=== PATIENT | male | born 1970 | race Caucasian/White ===

== ENCOUNTER 2016-08-02 14:16 | Inpatient (IN) | payer BC ==
[~2016-08-02] VITALS: Ht 177.8 cm; Wt 79.9 kg
[2016-08-02 14:18] VITALS: BP 133/79; PULSE 92; RESP 16; TEMP 98; O2SAT 97
[2016-08-02 15:03] VITALS: BP 143/80; PULSE 104; RESP 18; TEMP 98.4; O2SAT 97
--- NOTE | 2016-08-02 15:59 | PD ---
HPI Chief Complaint: Psychiatric Symptoms Time Seen by Provider: 15:56 Travel History International Travel<30 days: No Contact w/Intl Traveler<30days: No Traveled to known affect area: No History of Present Illness HPI 46-year-old male presents the emergency Department voluntarily for suicidal ideation. Patient is currently in the midst of divorce and reports wanting to drive in front of a semi-or some other means to kill himself. The police went to his workplace but he came in voluntarily. He denies alcohol or drug abuse. He denies any medical issues or problems today. He has no chronic medical issues and takes no medications. He has no known drug allergies. [facility] Social History Alcohol Use: No Tobacco Use: No Substance Use: No Allergies-Medications (Allergen,Severity, Reaction): Coded Allergies: No Known Allergies (Unverified , 08/02/16) Review of Systems Except as stated in HPI: all other systems reviewed are Neg General / Constitutional: No: Fever Eyes: No: Visual changes HENT: No: Headaches Cardiovascular: No: Chest Pain or Discomfort Respiratory: No: Shortness of Breath Gastrointestinal: No: Abdominal Pain Genitourinary: No: Dysuria Musculoskeletal: No: Pain Skin: No Rash Neurologic: No: Weakness Psychiatric: No: Depression Endocrine: No: Polydipsia Hematologic/Lymphatic: No: Easy Bruising Physical Exam Narrative GENERAL: Patient is alert and oriented 3. No acute distress. SKIN: Warm and dry. Normal color. Normal turgor. HEAD: Atraumatic. Normocephalic. EYES: Pupils equal and round. No scleral icterus. No injection or drainage. ENT: No nasal bleeding or discharge. Mucous membranes pink and moist. Pharynx is clear. Airway is patent. NECK: Trachea midline. Supple nontender. CARDIOVASCULAR: Regular rate and rhythm. RESPIRATORY: No accessory muscle use. Clear to auscultation. Breath sounds equal bilaterally. GASTROINTESTINAL: Abdomen soft, non-tender, nondistended. Hepatic and splenic margins not palpable. MUSCULOSKELETAL: Extremities without clubbing, cyanosis, or edema. No obvious deformities. NEUROLOGICAL: Awake and alert. No obvious cranial nerve deficits. Motor grossly within normal limits. Five out of 5 muscle strength in the arms and legs. Normal speech. PSYCHIATRIC: Appropriate mood and affect; insight and judgment normal. Data Data Last Documented VS Vital Signs Date Time Temp Pulse Resp B/P Pulse Ox O2 Delivery O2 Flow Rate FiO2 08/02/16 15:03 98.4 104 18 143/80 97 08/02/16 14:18 Room Air Orders Diet Regular Basic (08/02/16 Dinner) MDM Medical Decision Making Medical Screen Exam Complete: Yes Emergency Medical Condition: Yes Differential Diagnosis Social stressors. Depression. Suicidal ideation. Narrative Course Patient is medically stable at time of exam. Labs ordered for psychiatric protocol. Patient is medically cleared for psychiatric evaluation. Diagnosis Primary Impression: Suicidal ideation Additional Impression: Medical clearance for psychiatric admission Condition: Stable Hung Duff Aug 02, 2016 15:59
[2016-08-02] MEDS ORDERED: LEXA20TA PO (18:01)
[2016-08-02 18:38] LABS: AUTOMATED NEUTROPHIL # 5.9 TH/MM3 (1.8-7.7); BASOPHIL % 0.6 % (0.0-2.0); EOSINOPHIL # 0.1 TH/MM3 (0-0.4); EOSINOPHIL % 1.5 % (0.0-4.0); HEMATOCRIT 49.6 % (39.0-51.0); HEMO FLAGS DIFF FINAL; LYMPH % 17.3 % (9.0-44.0); LYMPHOCYTE # 1.4 TH/MM3 (1.0-4.8); MEAN CELL VOLUME 90.1 FL (80.0-100.0); MEAN CORPUSCULAR HEMOGLOBIN 29.6 PG (27.0-34.0); MEAN CORPUSCULAR HGB CONC 32.9 % (32.0-36.0); MONO % 7.3 % (0.0-8.0); NEUT % 73.3 % (16.0-70.0); PLATELET COUNT 279 TH/MM3 (150-450); WHITE BLOOD COUNT 8.1 TH/MM3 (4.0-11.0)
[2016-08-02 18:52] LABS: ANION GAP 9 MEQ/L (5-15)
[2016-08-02 18:55] LABS: ALKALINE PHOSPHATASE 50 U/L (45-117); ALT (GPT) 34 U/L (12-78); AST (GOT) 33 U/L (15-37); BICARBONATE 24.5 MEQ/L (21.0-32.0); BLOOD UREA NITROGEN 29 MG/DL (7-18); CHLORIDE 104 MEQ/L (98-107); GLOMERULAR FILTRATION RATE 75 ML/MIN (>89); POTASSIUM 3.7 MEQ/L (3.5-5.1); SODIUM (NA) 137 MEQ/L (136-145); TOTAL BILIRUBIN ADULT 0.3 MG/DL (0.2-1.0)
[2016-08-02 22:04] VITALS: BP 120/71; PULSE 63; RESP 17; O2SAT 99
[2016-08-03 02:25] VITALS: BP 117/71; PULSE 64; RESP 18; O2SAT 97
[2016-08-03 06:20] VITALS: BP 111/89; PULSE 77; RESP 18; O2SAT 99
[2016-08-03 07:09] LABS: AMPHETAMINE, URINE NEG (NEG); BARBITURATES, URINE NEG (NEG); COCAINE, URINE NEG (NEG)
[2016-08-03] MEDS ORDERED: ALUMINUM/MAGNESIUM/SIMETH 30 ML CUP PO PRN (08:00)
[2016-08-03] MEDS ORDERED: MAGNESIUM HYDROXIDE SUSP 30 ML CUP PO PRN (08:00)
[2016-08-03] MEDS ORDERED: ACETAMINOPHEN 325 MG TAB PO PRN (08:00)
[2016-08-03] MEDS ORDERED: LORazepam 2 MG/ML VIAL IM PRN (08:00)
[2016-08-03] MEDS ORDERED: diphenhydrAMINE HCL 50 MG CAP PO PRN (08:00)
[2016-08-03] MEDS ORDERED: BENZTROPINE MESYLATE 2 MG/2 ML VIAL IM PRN (08:00)
[2016-08-03] MEDS ORDERED: BENZTROPINE MESYLATE 1 MG TAB PO PRN (08:00)
--- NOTE | 2016-08-03 08:49 | MH ---
cc: WYATT GOINS DATE OF ADMISSION: 08/03/2016 ADMITTING DIAGNOSIS 1. Major depressive disorder, single episode, severe without psychotic features, F32.2. LEGAL STATUS The patient is presently capacitated to sign into the hospital voluntarily and consent for medications. Voluntary status. HISTORY OF PRESENT ILLNESS Mr. Booth is a 46-year-old male with no psychiatric history who presented on a voluntary basis to the emergency room with complaints of suicidal ideation. Reviewing the electronic medical record, I see no prior psychiatric contact within our system. Patient seen and examined. Chart reviewed. Case discussed with the nurse in the J-pod. On my examination today, the patient presents as intensely dysphoric. He says that about 4 months ago he began going on to "[employer]" to talk with other women over the internet. His found out and has begun the process of leaving him. The patient thinks this is unfair because he believes that he has an internet addiction and that he should not be penalized in this way for something that is out of his control. Nonetheless, his reportedly persists in leaving him and this is making him quite depressed. He says "I fucked up. I need help. I don't want to live without my ." The patient endorses worsening depressive symptoms over the last 4 months, acutely worse about 2 months ago. There is no anhedonia but the patient does report sleep difficulty and weight loss in the setting of normal appetite. He feels hopeless about the future. He feels guilty for his behavior. There has been no decrement in his ADLs and he continues to go to work and the gym as normal. He does endorse suicidal ideation. His plan had initially been to shoot himself but his confiscated his gun. He now says that he wants to run his motorcycle into a semi truck. He reiterates "I'm not going to live without my ." I can elicit no current or prior hypomanic/manic symptoms. He denies ever having experienced audiovisual hallucinations and I can elicit no delusional beliefs. PAST MEDICAL HISTORY The patient denies any history of psychiatric diagnosis. He is not currently under the care of an outpatient psychiatrist. He is seeing an individual marital counselor recently. He denies any history of psychiatric admissions or suicide attempts. The patient reports that he has been taking his 's Lexapro 20 mg daily during the period of acute dysphoria, but he has not found this agent at all helpful for lifting his mood. FAMILY HISTORY The patient reports that two of his maternal uncles had some sort of mental illness, although he is unsure of the diagnosis. He denies any family history of suicide or substance use disorder. CHEMICAL DEPENDENCY HISTORY The patient denies any abuse of drugs or alcohol. SOCIAL HISTORY The patient denies any history of physical, verbal or sexual abuse but does note that his parents locked him in the closet as a child so that they could smoke cannabis. He has been 20 years and has a stepdaughter. He has a 9th grade education and subsequently obtained his GED. 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 He denies any or legal history. Denies any pentecostalism or spiritual beliefs. His has removed the gun from the home per his report. PAST MEDICAL HISTORY The patient reports no history of medical illness. REVIEW OF SYSTEMS No reported headache, vision or hearing changes, chest pain, shortness of breath, bowel or bladder issues. ALLERGIES No known allergies. PHYSICAL EXAMINATION Vital signs: Temperature 98.4, pulse 77, respirations 18, blood pressure 111/89, pulse oximetry 99% on room air. The physical examination was completed in the emergency room by the ER staff and the patient was medically cleared. On my examination today, the patient appears to be in no acute physical distress. He is well-nourished and well-developed. No motor abnormalities noted. LABORATORY Laboratory is reviewed: CBC is unremarkable. CMP reveals mildly decreased GFR at 75. Urine toxicology is negative and alcohol level was undetectable. MENTAL STATUS EXAMINATION The patient is in a hospital gown. He is well-groomed and maintaining basic hygiene. He is awake and alert and oriented x3. No evidence of delirium. No motor abnormalities noted. Speech is within normal limits for rate, tone and volume. Memory is intact on clinical exam. Language and fund of knowledge seem average. Mood is severely depressed and affect is restricted and dysphoric and consistent with stated mood. Thought process linear. No loosening of associations. No evident delusions. Denies audiovisual hallucinations. Endorses ongoing suicidal ideation with plan to drive his motorcycle into a semi truck. No reported urge to hurt himself on the inpatient psychiatric unit. No homicidal ideation. Insight and judgment are fair. ASSESSMENT AND PLAN This is a 46-year-old male with psychiatric history as detailed above who presents on a voluntary basis with suicidal ideation. Although initially triggered by his marital difficulties, it is my suspicion that the patient's current dysphoria has blossomed into a major depressive episode, currently severe without psychotic features. The patient endorses active suicidal ideation with plan. He has apparently been taking Lexapro without much benefit. He endorses prominent difficulties with sleep and also hopelessness and guilt. The patient requires psychiatric admission at this time for safety, observation and stabilization. Admit inpatient. Voluntary status. Check TFTs, BMP, hemoglobin A1c and lipid panel in the morning. Discontinue Lexapro. Given that he has seen no benefit from this SSRI and given that he has reported issues with sleep, I think a transition out of class to Remeron is reasonable. I will start Remeron 15 mg at bedtime for mood. Risks, benefits and alternatives discussed with the patient. Ativan as needed for anxiety, Cogentin as needed for EPS, Benadryl as needed for sleep. Vitals every shift. Counselor to see. Disposition planning. Estimated length of stay: 5-7 days. Wyatt COELLO /7:54 AM /8:27 AM BOBBY
[2016-08-03] MEDS: NICOTINE 21 MG/24 HR PATCH T-DERMAL SCH (09:00)
[2016-08-03] MEDS: REMOVE OLD PATCH T-DERMAL SCH (09:00)
[2016-08-03 10:25] VITALS: BP 126/65; PULSE 92; RESP 18; TEMP 98.2; O2SAT 98
[2016-08-03] MEDS: LORazepam 0.5 MG TAB PO PRN ×2 (12:00→20:34)
[2016-08-03 18:48] VITALS: BP 118/65; PULSE 90; RESP 18; TEMP 98.5; O2SAT 96
[2016-08-03 19:00] VITALS: BP 118/65; PULSE 90; RESP 18; TEMP 98.5; O2SAT 96
[2016-08-03] MEDS: MIRTAZAPINE 15 MG TAB PO SCH (20:34)
[2016-08-04 05:35] VITALS: BP 103/61; PULSE 68; RESP 17; TEMP 97.9; O2SAT 98
[2016-08-04] MEDS: REMOVE OLD PATCH T-DERMAL SCH (09:00)
[2016-08-04] MEDS: NICOTINE 21 MG/24 HR PATCH T-DERMAL SCH (09:00)
[2016-08-04 12:59] LABS: ANION GAP 7 MEQ/L (5-15); BICARBONATE 29.3 MEQ/L (21.0-32.0); BLOOD UREA NITROGEN 16 MG/DL (7-18); CHLORIDE 103 MEQ/L (98-107); FREE T4 1.02 NG/DL (0.76-1.46); GLOMERULAR FILTRATION RATE 72 ML/MIN (>89); HDL CHOLESTEROL 33.7 MG/DL (40.0-60.0); LDL CHOLESTEROL 178 MG/DL (0-99); POTASSIUM 4.5 MEQ/L (3.5-5.1); SODIUM (NA) 139 MEQ/L (136-145)
--- NOTE | 2016-08-04 17:03 | HHI.PYPN ---
Subjective Remarks Pt signed ROR stating that he changed his mind and is ready to go. "I've realized my is just a CT! So I don't want her anymore." Staff report he is seclusive to his room. He denies SI today but is agreeable to remain voluntary admission. No medication side effects. Objective Alert: Yes [place]: Person, Place, Date, Situation Mood: Depressed Affect: Other (angry) Memory Intact: Immediate, Recent, Remote Hallucinations: Other (none) Delusions: No Delusion Type: Other (none) Suicidal: Ideation (denies) Homicidal: Ideation (denies) Insight/Judgment poor Labs Test 08/04/16 11:42 Sodium Level 139 MEQ/L Potassium Level 4.5 MEQ/L Chloride Level 103 MEQ/L Carbon Dioxide Level 29.3 MEQ/L Anion Gap 7 MEQ/L Blood Urea Nitrogen 16 MG/DL Creatinine 1.10 MG/DL Estimat Glomerular Filtration 72 ML/MIN Rate Random Glucose 95 MG/DL Calcium Level 8.9 MG/DL Triglycerides Level 79 MG/DL Cholesterol Level 227 MG/DL LDL Cholesterol 178 MG/DL HDL Cholesterol 33.7 MG/DL Cholesterol/HDL Ratio 6.73 RATIO Free Thyroxine 1.02 NG/DL Thyroid Stimulating Hormone 0.673 uIU/ML 3rd Gen Vitals/IOs Vital Signs Date Time Temp Pulse Resp B/P Pulse Ox O2 Delivery O2 Flow Rate FiO2 08/04/16 05:35 97.9 68 17 103/61 98 08/03/16 06:20 Room Air Assessment & Plan Problem List: (1) Major depressive disorder, single episode, severe without psychotic features ICD Code: F32.2 Assessment & Plan Continue current tx plan. Estimated LOS: days Justification for Cont. Inpt. Continue to monitor for safety. Meghana Bowles MD Aug 04, 2016 17:03
[2016-08-04] MEDS: MIRTAZAPINE 15 MG TAB PO SCH (20:33)
[2016-08-05 06:30] VITALS: BP 107/65; PULSE 74; RESP 16; TEMP 98.1; O2SAT 97
[2016-08-05 06:32] VITALS: BP 97/60; PULSE 100; RESP 16; TEMP 98.7; O2SAT 98
[2016-08-05] MEDS: REMOVE OLD PATCH T-DERMAL SCH (08:37)
[2016-08-05] MEDS: NICOTINE 21 MG/24 HR PATCH T-DERMAL SCH (08:37)
[2016-08-05 11:15] LABS: HEMOGLOBIN A1a 1.1 %; HEMOGLOBIN A1b 0.8 %; HEMOGLOBIN Ao 85.6 %; HEMOGLOBIN F 0.8 %; HEMOGLOBIN P3 3.9 %
--- NOTE | 2016-08-05 14:40 | HHI.PYPN ---
Subjective Remarks Pt seen and discussed with staff. He reports that his mood is much better and he is accepting of demise of relationship. He reports that he had a good visit with his parents yesterday. He reports that he was seeing a therapist with his for marital counseling but would like to see a therapist individually upon discharge. He denies SI/HI today. No medication side effects. Sleep is good. Objective Alert: Yes [place]: Person, Place, Date, Situation Mood: Depressed Affect: Restricted Memory Intact: Immediate, Recent, Remote Hallucinations: Other (none) Delusions: No Delusion Type: Other (none) Suicidal: Ideation (denies) Homicidal: Ideation (denies) Insight/Judgment fair Vitals/IOs Vital Signs Date Time Temp Pulse Resp B/P Pulse Ox O2 Delivery O2 Flow Rate FiO2 08/05/16 06:32 98.7 100 16 97/60 98 08/03/16 06:20 Room Air Intake and Output 08/04/16 08/04/16 08/05/16 08:00 16:00 00:00 Intake Total 360 ml 240 ml Balance 360 ml 240 ml Assessment & Plan Problem List: (1) Major depressive disorder, single episode, severe without psychotic features ICD Code: F32.2 Assessment & Plan continue current tx plan. Estimated LOS: days Justification for Cont. Inpt. monitoring for safety. Meghana Bowles MD Aug 05, 2016 14:40
[2016-08-05 18:00] VITALS: BP 120/73; PULSE 80; RESP 17; TEMP 99.6; O2SAT 99
[2016-08-05] MEDS: MIRTAZAPINE 15 MG TAB PO SCH (21:28)
[2016-08-06 06:01] VITALS: BP 91/58; PULSE 69; RESP 16; TEMP 97.2; O2SAT 96
[2016-08-06] MEDS: NICOTINE 21 MG/24 HR PATCH T-DERMAL SCH (09:00)
[2016-08-06] MEDS: REMOVE OLD PATCH T-DERMAL SCH (09:00)
--- NOTE | 2016-08-06 14:46 | HHI.DS ---
Psychiatry Discharge Summary Inpatient Psychiatric care?: Yes Advance Directive: No Reason Not Provided: Due to Patient Condition Mental Health AdvanceDirective: No Health Care Proxy: No Admission Admission Date Aug 03, 2016 at 07:51 Admission Diagnosis: (1) Major depressive disorder, single episode, severe without psychotic features ICD Code: F32.2 Brief History See history of present illness for a brief history of this patient's admission. Tobacco Use In Past 30 Days: No Tobacco Past 30 Days Alcohol Use: Monthly or Less Hospital Course Did well during the hospital course. Participated in individual and group therapies. No psychosis by the end of the hospital stay. Tolerated medicines well. No procedures performed. Results Blood Pressure 91 / 58 Vital Signs Date Time Temp Pulse Resp B/P Pulse Ox O2 Delivery O2 Flow Rate FiO2 08/06/16 06:01 97.2 69 16 91/58 96 08/03/16 06:20 Room Air Laboratory Tests Test 08/04/16 11:42 Estimat Glomerular Filtration 72 ML/MIN (>89) Rate Cholesterol Level 227 MG/DL (120-200) LDL Cholesterol 178 MG/DL (0-99) HDL Cholesterol 33.7 MG/DL (40.0-60.0) Laboratory Results Test 08/04/16 11:42 Hemoglobin A1c 5.4 % (4.3-6.0) Triglycerides Level 79 MG/DL (42-150) Cholesterol Level 227 MG/DL (120-200) LDL Cholesterol 178 MG/DL (0-99) HDL Cholesterol 33.7 MG/DL (40.0-60.0) Summary of Procedures None Pending results at discharge: No Medications # of Antipsychotic meds at D/C: 1 Appropriate >1 Antipsych meds?: 1 Approp Antipsych med options 1 - Minimum of three failed multiple trials of monotherapy. 2 - Documented plan to taper to monotherapy due to previous use of multiple meds OR cross-taper in progress at D/C. 3 - Documentation of augmentation of Clozapine. 4 - Justification other than those listed in allowable values 1-3, document here : Discharge Discharge Date: August 06, 2016 Discharge Diagnosis: (1) Major depressive disorder, single episode, severe without psychotic features Diagnosis: Principal ICD Code: F32.2 Mental Status Exam at Disch At time of discharge the patient was not suicidal or homicidal and cognition was intact. He verbally contracted for safety. No psychosis. Pt Condition on Discharge: Stable Discharge Disposition: Discharge Home Discharge Instructions Diet Instructions: As Tolerated, No Restrictions Activities you can perform: Regular-No Restrictions Scheduled Appointment: Ming Louis Yanni Appointment Date: August 13, 2016 Appointment Time: 7:30am Discharge Time <= 30 minutes Discharge/Advance Care Plan Health Problems: (1) Major depressive disorder, single episode, severe without psychotic features Goals to promote your health * To prevent worsening of your condition and complications * To maintain your health at the optimal level Directions to meet your goals Take your medications as prescribed Follow your dietary instruction Follow activity as directed Keep your appointments as scheduled Take your immunizations and boosters as scheduled If your symptoms worsen call your PCP, if no PCP go to Urgent Care Center or Emergency Room For 29/10 questions related to your inpatient stay or results of tests pending at discharge, please contact Dr. Chaka Gu at Smoking is Dangerous to Your Health. Avoid second hand smoking Chaka Gu MD August 06, 2016 14:46
== END 2016-08-06 18:10 | disposition home or self-care (01) | DRG 885 ==
LOC: NEPJ 14:16 → NEDA 08-03 07:51 → H260 08-03 09:00
PROVIDERS: ADMIT Psychiatry & Neurology Psychiatry; ATTEND Psychiatry & Neurology Psychiatry
DX: F32.2 Major depressive disorder, single episode, severe without psychotic features (principal); R45.851 Suicidal ideations
CPT/HCPCS: 80048; 80053; 80061; 80307; 83036; 84439; 84443; 85025; 99284

== ENCOUNTER 2017-03-03 20:39 | Emergency (ER) | payer BC, OTHER ==
[~2017-03-03] VITALS: Ht 182.9 cm; Wt 82.0 kg
[2017-03-03 20:50] VITALS: BP 141/91; PULSE 113; RESP 20; TEMP 98.6; O2SAT 96
[2017-03-03] MEDS ORDERED: SODIUM CHLOR 0.9% 1000 ML INJ 1,000 ML IV ONE (21:00)
[2017-03-03 21:51] LABS: AUTOMATED NEUTROPHIL # 4.4 TH/MM3 (1.8-7.7); BASOPHIL % 0.6 % (0.0-2.0); EOSINOPHIL # 0.1 TH/MM3 (0-0.4); EOSINOPHIL % 0.9 % (0.0-4.0); HEMATOCRIT 48.6 % (39.0-51.0); HEMO FLAGS DIFF FINAL; MEAN CELL VOLUME 91.1 FL (80.0-100.0); MEAN CORPUSCULAR HEMOGLOBIN 31.3 PG (27.0-34.0); MEAN CORPUSCULAR HGB CONC 34.4 % (32.0-36.0); MONO % 5.5 % (0.0-8.0); PLATELET COUNT 228 TH/MM3 (150-450); RED BLOOD COUNT 5.33 MIL/MM3 (4.50-5.90); RED CELL DISTRIBUTION WIDTH 13.1 % (11.6-17.2); WHITE BLOOD COUNT 6.8 TH/MM3 (4.0-11.0)
[2017-03-03 22:02] LABS: ANION GAP 8 MEQ/L (5-15); BICARBONATE 26.7 MEQ/L (21.0-32.0); BLOOD UREA NITROGEN 12 MG/DL (7-18); CHLORIDE 107 MEQ/L (98-107); GLOMERULAR FILTRATION RATE 76 ML/MIN (>89); POTASSIUM 3.5 MEQ/L (3.5-5.1); SODIUM (NA) 142 MEQ/L (136-145)
[2017-03-03 22:05] LABS: ACETAMINOPHEN LESS THAN 2.0 MCG/ML (10.0-30.0); ALCOHOL 127 MG/DL (0-5)
--- NOTE | 2017-03-03 22:18 | PD ---
HPI Chief Complaint: Psychiatric Symptoms Time Seen by Provider: 20:58 Travel History International Travel<30 days: No Contact w/Intl Traveler<30days: No Traveled to known affect area: No History of Present Illness HPI Patient is a 47 year old male brought in by police under a [place] Act. Per police, he was texting his ex- and telling her he was going to kill himself. Police say he repeated this statement when they arrived. He has firearms at home and told police he would use them to kill himself. Currently, he denies this. He denies any complaints at this time. He does have history of depression and takes Lexapro. He has been hospitalized once before here for suicidal ideation. [facility] Past Medical History Depression: Yes Cancer: No Cardiovascular Problems: No Diabetes: No Endocrine: No Genitourinary: No Headaches: Yes Immune Disorder: No Musculoskeletal: No Neurologic: No Psychiatric: Yes (ongoing depression for about four months) Reproductive: No Respiratory: No Seizures: No Tetanus Vaccination: Unknown Influenza Vaccination: No Past Surgical History Surgical History: No Previous Surgery Other Surgery: No Social History Alcohol Use: Yes ("EVERY WEEKEND") Tobacco Use: No Substance Use: No Allergies-Medications (Allergen,Severity, Reaction): Coded Allergies: No Known Allergies (Unverified , 08/02/16) Reported Meds & Prescriptions Reported Meds & Active Scripts Active Reported Lexapro (Escitalopram Oxalate) 20 Mg Tab 20 Mg PO DAILY Review of Systems Except as stated in HPI: all other systems reviewed are Neg General / Constitutional: No: Fever, Chills HENT: No: Headaches, Lightheadedness Cardiovascular: No: Chest Pain or Discomfort Respiratory: No: Shortness of Breath Gastrointestinal: No: Nausea, Vomiting, Abdominal Pain Musculoskeletal: No: Myalgias, Weakness Skin: No Rash, No Change in Pigmentation Neurologic: No: Weakness, Dizziness Physical Exam Narrative GENERAL: Awake and alert, in no acute distress. AOB. SKIN: Focused skin assessment warm/dry. HEAD: Atraumatic. Normocephalic. EYES: Pupils equal and round. No scleral icterus. ENT: Mucous membranes pink and moist. NECK: Trachea midline. No JVD. CARDIOVASCULAR: Regular rate and rhythm. No murmur appreciated. RESPIRATORY: No accessory muscle use. Clear to auscultation. Breath sounds equal bilaterally. GASTROINTESTINAL: Abdomen soft, non-tender, nondistended. MUSCULOSKELETAL: No obvious deformities. No clubbing. No cyanosis. No edema. NEUROLOGICAL: Awake and alert. No obvious cranial nerve deficits. Motor grossly within normal limits. Normal speech. PSYCHIATRIC: Appropriate mood and affect; insight and judgment normal. Data Data Last Documented VS Vital Signs Date Time Temp Pulse Resp B/P (MAP) Pulse Ox O2 Delivery O2 Flow Rate FiO2 03/04/17 02:49 90 18 113/71 (85) 99 03/03/17 23:03 Room Air 03/03/17 20:50 98.6 Orders Orders Complete Blood Count With Diff (03/03/17 20:52) Basic Metabolic Panel (Bmp) (03/03/17 20:52) Psych Screen (03/03/17 20:52) Drug Screen, Random Urine (03/03/17 20:52) Alcohol (Ethanol) (03/03/17 20:52) Sodium Chlor 0.9% 1000 Ml Inj (Ns 1000 M (03/03/17 21:00) Salicylates (Aspirin) (03/03/17 20:58) Tylenol (Acetaminophen) (03/03/17 20:52) Electrocardiogram (03/03/17 20:54) Labs Laboratory Tests Test 03/03/17 21:15 03/03/17 21:45 White Blood Count 6.8 TH/MM3 Red Blood Count 5.33 MIL/MM3 Hemoglobin 16.7 GM/DL Hematocrit 48.6 % Mean Corpuscular Volume 91.1 FL Mean Corpuscular Hemoglobin 31.3 PG Mean Corpuscular Hemoglobin Concent 34.4 % Red Cell Distribution Width 13.1 % Platelet Count 228 TH/MM3 Mean Platelet Volume 7.4 FL Neutrophils (%) (Auto) 64.0 % Lymphocytes (%) (Auto) 29.0 % Monocytes (%) (Auto) 5.5 % Eosinophils (%) (Auto) 0.9 % Basophils (%) (Auto) 0.6 % Neutrophils # (Auto) 4.4 TH/MM3 Lymphocytes # (Auto) 2.0 TH/MM3 Monocytes # (Auto) 0.4 TH/MM3 Eosinophils # (Auto) 0.1 TH/MM3 Basophils # (Auto) 0.0 TH/MM3 CBC Comment DIFF FINAL Differential Comment Blood Urea Nitrogen 12 MG/DL Creatinine 1.05 MG/DL Random Glucose 108 MG/DL Calcium Level 8.5 MG/DL Sodium Level 142 MEQ/L Potassium Level 3.5 MEQ/L Chloride Level 107 MEQ/L Carbon Dioxide Level 26.7 MEQ/L Anion Gap 8 MEQ/L Estimat Glomerular Filtration Rate 76 ML/MIN Salicylates Level LESS THAN 1.7 MG/DL Acetaminophen Level LESS THAN 2.0 MCG/ML Ethyl Alcohol Level 127 MG/DL Urine Opiates Screen NEG Urine Barbiturates Screen NEG Urine Amphetamines Screen NEG Urine Benzodiazepines Screen NEG Urine Cocaine Screen NEG Urine Cannabinoids Screen NEG MDM Medical Decision Making Medical Screen Exam Complete: Yes Emergency Medical Condition: Yes Medical Record Reviewed: Yes Differential Diagnosis Intoxication versus psychosis versus suicidal thoughts Narrative Course Patient is a 47-year-old male who comes in under Sommer act after telling his ex- he wanted to kill himself. He has no medical complaints. He is tachycardic on exam. IV established, labs sent. Patient given IV fluids. He will be medically cleared for psychiatric evaluation Diagnosis Primary Impression: Major depressive disorder Qualified Codes: F32.2 - Major depressive disorder, single episode, severe without psychotic features Katarina Wells MD Mar 03, 2017 22:18
[2017-03-03 22:46] VITALS: PULSE 95; RESP 16; O2SAT 100
[2017-03-03 23:03] VITALS: BP 114/59; PULSE 92; RESP 18; O2SAT 96
[2017-03-03] MEDS ORDERED: LEXA20TA PO (23:11)
[2017-03-04 02:49] VITALS: BP 113/71; PULSE 90; RESP 18; O2SAT 99
[2017-03-04 06:18] VITALS: BP 126/79; PULSE 89; RESP 18
--- NOTE | 2017-03-04 07:03 | EKG ---
Date Performed: 03/03/2017 Time Performed: 20:54:30 PTAGE: 47 years EKG: SINUS TACHYCARDIA POSSIBLE LEFT ATRIAL ENLARGEMENT INCOMPLETE RIGHT BUNDLE BRANCH BLOCK ABN ORMAL RHYTHM ECG NO PREVIOUS TRACING DOCTOR: Juan De Souza Interpretating Date/Time 03/04/2017 07:01:54
--- NOTE | 2017-03-04 11:03 | PD ---
History of Present Illness Chief Complaint: Psychiatric Symptoms Time Seen by Provider: 11:00 Travel History International Travel<30 Days: No Contact w/Intl Traveler<30days: No Known affected area: No Legal Status Legal Status: Sommer Act Sommer Act Signed By: Arlette Calhoun History of Present Illness: 47-year-old male brought in under a Sommer act yesterday for making suicidal threats. Patient states he feels "awesome" today and he denies any suicidal or homicidal ideation, plan or intent. He states he was drinking "all day yesterday" and this is the reason he was Sommer acted. He denies any psychotic symptoms and his cognition is intact. Currently, he is verbally steven for safety and he is competent to do so. This physician notes that he denied being suicidal earlier during this emergency department visit as well. He is not interested in treatment at [facility]. [facility] Past Medical History Depression: Yes Cancer: No Cardiovascular Problems: No Diabetes: No Endocrine: No Genitourinary: No Headaches: Yes Immune Disorder: No Musculoskeletal: No Neurologic: No Psychiatric: Yes (ongoing depression for about four months) Reproductive: No Respiratory: No Seizures: No Tetanus Vaccination: Unknown Influenza Vaccination: No Past Surgical History Surgical History: No Previous Surgery Other Surgery: No Psychiatric History Psychiatric History Hx Psychiatric Treatment: PATIENT WAS LAST ADMITTED TO [facility] FROM 08/03/16 TO 08/06/16 FOR MAJOR DEPRESSIVE DISORDER, SEVERE. Patient does not appear to have any significant clinically objective signs of major depression at this time. This physician does feel that he is likely an alcoholic. History of Inpatient Treatment: Yes Guns or firearms in home: Yes Social History Hx Alcohol Use: Yes ("EVERY WEEKEND") Hx Tobacco Use: No Hx Substance Use: No Hx of Substance Use Treatment: No Allergies-Medications (Allergen,Severity, Reaction): Coded Allergies: No Known Allergies (Unverified , 08/02/16) Reported Meds & Prescriptions Reported Meds & Active Scripts Active Reported Lexapro (Escitalopram Oxalate) 20 Mg Tab 20 Mg PO DAILY Review of Systems Except as stated in HPI: all other systems reviewed are Neg Mental Status Examination Appearance: Appropriate Consciousness: Alert Orientation: x4 Motor Activity: Normal gait Speech: Unremarkable Language: Adequate Fund of Knowledge: Adequate Attention and Concentration: Adequate Memory: Unremarkable Mood: Appropriate Affect: Appropriate Thought Process & Associations: Intact Thought Content: Appropriate Hallucination Type: None Delusion Type: None Suicidal Ideation: No Suicidal Plan: No Suicidal Intention: No Homicidal Ideation: No Homicidal Plan: No Homicidal Intention: No Insight: Adequate Judgment: Adequate MDM Medical Decision Making Medical Record Reviewed: Yes Assessment/Plan Patient interviewed at bedside. Medical record reviewed. Case discussed with nurse Ariadne. Patient does not meet criteria for Sommer act or involuntary psychiatric hospitalization at this time. Due to the patient's ongoing alcohol abuse, he remains at risk for harming himself, but this is both unavoidable and unpredictable. Patient is verbally steven for safety and he is competent to do so. He would like to go home and states he has both a job and a girlfriend to go back to. Orders Orders Complete Blood Count With Diff (03/03/17 20:52) Basic Metabolic Panel (Bmp) (03/03/17 20:52) Psych Screen (03/03/17 20:52) Drug Screen, Random Urine (03/03/17 20:52) Alcohol (Ethanol) (03/03/17 20:52) Sodium Chlor 0.9% 1000 Ml Inj (Ns 1000 M (03/03/17 21:00) Salicylates (Aspirin) (03/03/17 20:58) Tylenol (Acetaminophen) (03/03/17 20:52) Electrocardiogram (03/03/17 20:54) Diet Regular Basic (03/04/17 Breakfast) Diet Regular Basic (03/04/17 Lunch) Results Vital Signs Date Time Temp Pulse Resp B/P (MAP) Pulse Ox O2 Delivery O2 Flow Rate FiO2 03/04/17 06:18 89 18 126/79 (95) 03/04/17 02:49 90 18 113/71 (85) 99 03/03/17 23:03 92 18 114/59 (77) 96 Room Air 03/03/17 22:46 95 16 100 03/03/17 20:50 98.6 113 20 141/91 (108) 96 Laboratory Tests Test 03/03/17 21:15 03/03/17 21:45 White Blood Count 6.8 Red Blood Count 5.33 Hemoglobin 16.7 Hematocrit 48.6 Mean Corpuscular Volume 91.1 Mean Corpuscular Hemoglobin 31.3 Mean Corpuscular Hemoglobin Concent 34.4 Red Cell Distribution Width 13.1 Platelet Count 228 Mean Platelet Volume 7.4 Neutrophils (%) (Auto) 64.0 Lymphocytes (%) (Auto) 29.0 Monocytes (%) (Auto) 5.5 Eosinophils (%) (Auto) 0.9 Basophils (%) (Auto) 0.6 Neutrophils # (Auto) 4.4 Lymphocytes # (Auto) 2.0 Monocytes # (Auto) 0.4 Eosinophils # (Auto) 0.1 Basophils # (Auto) 0.0 CBC Comment DIFF FINAL Differential Comment Blood Urea Nitrogen 12 Creatinine 1.05 Random Glucose 108 Calcium Level 8.5 Sodium Level 142 Potassium Level 3.5 Chloride Level 107 Carbon Dioxide Level 26.7 Anion Gap 8 Estimat Glomerular Filtration Rate 76 Salicylates Level LESS THAN 1.7 Acetaminophen Level LESS THAN 2.0 Ethyl Alcohol Level 127 Urine Opiates Screen NEG Urine Barbiturates Screen NEG Urine Amphetamines Screen NEG Urine Benzodiazepines Screen NEG Urine Cocaine Screen NEG Urine Cannabinoids Screen NEG Diagnosis Primary Impression: Alcohol abuse Chaka Gu MD Mar 04, 2017 11:03
--- NOTE | 2017-03-04 11:25 | PD ---
Physical Exam Date Seen by Provider: Mar 04, 2017 Time Seen by Provider: 11:23 Data Data Last Documented VS Vital Signs Date Time Temp Pulse Resp B/P (MAP) Pulse Ox O2 Delivery O2 Flow Rate FiO2 03/04/17 06:18 89 18 126/79 (95) 03/04/17 02:49 99 03/03/17 23:03 Room Air 03/03/17 20:50 98.6 Orders Orders Complete Blood Count With Diff (03/03/17 20:52) Basic Metabolic Panel (Bmp) (03/03/17 20:52) Psych Screen (03/03/17 20:52) Drug Screen, Random Urine (03/03/17 20:52) Alcohol (Ethanol) (03/03/17 20:52) Sodium Chlor 0.9% 1000 Ml Inj (Ns 1000 M (03/03/17 21:00) Salicylates (Aspirin) (03/03/17 20:58) Tylenol (Acetaminophen) (03/03/17 20:52) Electrocardiogram (03/03/17 20:54) Diet Regular Basic (03/04/17 Breakfast) Diet Regular Basic (03/04/17 Lunch) Ed Discharge Order (03/04/17 11:22) Labs Laboratory Tests Test 03/03/17 21:15 03/03/17 21:45 White Blood Count 6.8 TH/MM3 Red Blood Count 5.33 MIL/MM3 Hemoglobin 16.7 GM/DL Hematocrit 48.6 % Mean Corpuscular Volume 91.1 FL Mean Corpuscular Hemoglobin 31.3 PG Mean Corpuscular Hemoglobin Concent 34.4 % Red Cell Distribution Width 13.1 % Platelet Count 228 TH/MM3 Mean Platelet Volume 7.4 FL Neutrophils (%) (Auto) 64.0 % Lymphocytes (%) (Auto) 29.0 % Monocytes (%) (Auto) 5.5 % Eosinophils (%) (Auto) 0.9 % Basophils (%) (Auto) 0.6 % Neutrophils # (Auto) 4.4 TH/MM3 Lymphocytes # (Auto) 2.0 TH/MM3 Monocytes # (Auto) 0.4 TH/MM3 Eosinophils # (Auto) 0.1 TH/MM3 Basophils # (Auto) 0.0 TH/MM3 CBC Comment DIFF FINAL Differential Comment Blood Urea Nitrogen 12 MG/DL Creatinine 1.05 MG/DL Random Glucose 108 MG/DL Calcium Level 8.5 MG/DL Sodium Level 142 MEQ/L Potassium Level 3.5 MEQ/L Chloride Level 107 MEQ/L Carbon Dioxide Level 26.7 MEQ/L Anion Gap 8 MEQ/L Estimat Glomerular Filtration Rate 76 ML/MIN Salicylates Level LESS THAN 1.7 MG/DL Acetaminophen Level LESS THAN 2.0 MCG/ML Ethyl Alcohol Level 127 MG/DL Urine Opiates Screen NEG Urine Barbiturates Screen NEG Urine Amphetamines Screen NEG Urine Benzodiazepines Screen NEG Urine Cocaine Screen NEG Urine Cannabinoids Screen NEG MDM Medical Record Reviewed: Yes Supervised Visit with FELISHA: No Narrative Course 47-year-old male history of depression presented to the emergency room previously for evaluation of suicidal ideation. Patient denies suicidal or homicidal ideation at this time. He was seen by the psychiatrist a Sommer act was lifted. He is stable for outpatient follow-up. Diagnosis Primary Impression: Alcohol abuse Referrals: [facility] (Out patient) Primary Care Physician Disposition: 01 DISCHARGE HOME Condition: Stable Genoveva Wynn Mar 04, 2017 11:25
== END 2017-03-04 12:00 | disposition home or self-care (01) ==
LOC: NEPE 20:39 → NEPJ 03-04 12:00
DX: F10.10 Alcohol abuse, uncomplicated (principal); F32.2 Major depressive disorder, single episode, severe without psychotic features; R00.0 Tachycardia, unspecified; Y90.6 Blood alcohol level of 120-199 mg/100 ml; Z79.899 Other long term (current) drug therapy
CPT/HCPCS: 80048; 80307; 85025; 93005; 99284; J7030